=== PATIENT | female | born 1990 | race Two or more races ===

== ENCOUNTER 2021-11-02 22:17 | Emergency (ER) | payer BC ==
[~2021-11-02] VITALS: Ht 157.5 cm; Wt 108.9 kg
--- NOTE | 2021-11-02 22:50 | NUR ---
Dr. Lin at bedside, MSE in progress.
[2021-11-02 23:28] LABS: HEMATOCRIT 41.8 % (31.2-41.9); MEAN CORPUSCULAR HEMOGLOBIN 29.1 uug (24.7-32.8); MEAN CORPUSCULAR VOLUME 84.7 fL (75.5-95.3); PLATELET COUNT (AUTO) 362 K/uL (179-408)
--- NOTE | 2021-11-02 23:35 | NUR ---
US (JOSHUA) AT BEDSIDE.
[2021-11-02 23:37] LABS: *BILIRUBIN,URIN NEGATIVE (NEGATIVE); *BLOOD, URINE 2+ (NEGATIVE); *CLARITY,URINE CLEAR (CLEAR); *COLOR,URINE YELLOW (YELLOW); *KETONES,URINE NEGATIVE (NEGATIVE); *UROBILINOGEN,URINE 0.2 E.U./dl (NORMAL); LEUKOCYTE ESTERASE ,URINE TRACE (NEGATIVE); NITRITE, URINE NEGATIVE (NEGATIVE); PH,URINE 6.5 (5.0-8.0); UGLUCOSE NEGATIVE (NEGATIVE)
[2021-11-02 23:39] LABS: BILIRUBIN,DIRECT 0.1 mg/dL (0.0-0.2); BILIRUBIN,TOTAL 0.4 mg/dL (0.2-1.0); CREATININE 0.7 mg/dL (0.6-1.3); POTASSIUM 4.5 mmol/L (3.5-5.1); TOTAL PROTEIN, SERUM 7.9 g/dL (6.4-8.2)
[2021-11-02 23:53] LABS: BACTERIA,URINE FEW /HPF (NONE SEEN); SQUAMOUS EPITHELIAL CELL,UR MODERATE /HPF (NONE SEEN)
[2021-11-02 23:54] LABS: *URINE HCG, QUAL NEGATIVE (NEGATIVE)
[2021-11-03] MEDS ORDERED: KETOROLAC TROMETHAMINE 30 MG INJ IVP ONE
[2021-11-03] MEDS ORDERED: KETOROLAC TROMETHAMINE 30 MG INJ ONE (00:03)
[2021-11-03] MEDS ORDERED: KETOROLAC TROMETHAMINE 30 MG INJ IM ONE (00:30)
[2021-11-03] MEDS ORDERED: IBUP-1955 PO (00:30)
--- NOTE | 2021-11-03 00:40 | NUR ---
Patient discharged to home in stable condition. Written and verbal after care instructions given. Patient verbalizes understanding of instructions. Stressed follow up or return to ER for worsening s/s. Steady gait, denies any pain/discomfort. Picked up by significant other.
[2021-11-03 00:41] VITALS: BP 142/82
== END 2021-11-03 00:42 | disposition home or self-care (01) ==
LOC: ER 23:05
DX: K80.20 Calculus of gallbladder without cholecystitis without obstruction (principal); E66.01 Morbid (severe) obesity due to excess calories; Z68.41 Body mass index [BMI] 40.0-44.9, adult
CPT/HCPCS: 36415; 76705; 80048; 80076; 81001; 83690; 84703; 85025; 87086; 96372; 99284; J1885

== ENCOUNTER 2022-02-10 22:34 | Emergency (ER) | payer BC ==
[~2022-02-10] VITALS: Ht 157.5 cm; Wt 111.1 kg
[~2022-02-10 22:34] MED LIST: IBUP-1955 PO
[2022-02-10] MEDS ORDERED: NAPR-1164 PO (23:35)
--- NOTE | 2022-02-10 23:40 | NUR ---
Patient discharged to home in stable condition. Written and verbal after care instructions given. Patient verbalizes understanding of instructions. Stressed follow up or return to ER for worsening s/s.
[2022-02-10] MEDS ORDERED: KETOROLAC TROMETHAMINE 30 MG INJ ONE (23:42)
[2022-02-10] MEDS ORDERED: KETOROLAC TROMETHAMINE 30 MG INJ IM ONE (23:45)
== END 2022-02-10 23:50 | disposition home or self-care (01) ==
LOC: ER 22:36
DX: M25.571 Pain in right ankle and joints of right foot (principal); Z87.81 Personal history of (healed) traumatic fracture; Z91.81 History of falling
CPT/HCPCS: 99284; 73610; 73630; 96372; J1885; A4663

== ENCOUNTER 2022-07-05 23:57 | Emergency (ER) | payer BC, OTHER ==
[~2022-07-05] VITALS: Ht 157.5 cm; Wt 108.9 kg
--- NOTE | 2022-07-06 00:07 | NUR ---
Patient ambulated to room #2-a, informed of plan of care, awating MD exam. No s/s of any distress noted. left hand with small punture wound s/p dog bite.
--- NOTE | 2022-07-06 00:53 | NUR ---
at bedside for exam.
--- NOTE | 2022-07-06 01:15 | NUR ---
Called [facility], left voicemail.
--- NOTE | 2022-07-06 01:52 | NUR ---
Site cleaned as per order and drsg, applied. at bedside.
[2022-07-06] MEDS ORDERED: ALBU6.7H9 INH (02:13)
[2022-07-06] MEDS ORDERED: FLUT12AE5 INH (02:13)
[2022-07-06] MEDS ORDERED: BLOO-1731 MC (02:13)
--- NOTE | 2022-07-06 02:36 | NUR ---
ACI given, remains stable for discharge home.
[2022-07-06 02:37] VITALS: BP 111/62
== END 2022-07-06 02:38 | disposition home or self-care (01) ==
LOC: ER 23:57
DX: S61.452A Open bite of left hand, initial encounter (principal); W54.0XXA Bitten by dog, initial encounter; Y92.89 Other specified places as the place of occurrence of the external cause; J98.01 Acute bronchospasm; E88.81 Metabolic syndrome and other insulin resistance